=== PATIENT | male | born 1950 | race African-American/Black ===

== ENCOUNTER 2025-04-23 12:01 | Inpatient (IN) | payer OTHER ==
[~2025-04-23] VITALS: Ht 172.7 cm; Wt 66.7 kg
[2025-04-23 12:37] LABS: PLATELET COUNT (AUTO) 201 K/uL (150-450); RED BLOOD CELL COUNT(AUTO) 3.52 MIL/uL (4.5-6.0); RED CELL DISTRIBUTION WIDTH 14.1 % (11.5-15.0); WHITE BLOOD COUNT (AUTO) 9.8 K/uL (4.3-11.0)
[2025-04-23] MEDS ORDERED: ONDANSETRON HCL/PF 4 MG/2 ML VIAL ONE (12:37)
[2025-04-23] MEDS: ONDANSETRON HCL/PF 4 MG/2 ML VIAL IV ONE (12:42)
[2025-04-23] MEDS: IV NS 0.9% 500 ML BAG IV ONE (12:45)
[2025-04-23 12:52] LABS: CALCIUM, SERUM 9.3 mg/dL (8.5-10.1); CREATININE 2.0 mg/dL (0.6-1.3); SODIUM SERUM 143 mmol/L (136-145); UREA NITROGEN, BLOOD 24 mg/dL (7-18)
[2025-04-23] MEDS ORDERED: ACETAMINOPHEN ES 500 MG TABLET ONE (13:10)
[2025-04-23] MEDS: ACETAMINOPHEN ES 500 MG TABLET PO ONE (13:20)
[2025-04-23] MEDS ORDERED: IV NS 0.9% 250 ML IV ONE (13:31)
[2025-04-23] MEDS ORDERED: IOHEXOL-350 100 ML VIAL IV ONE (13:31)
[2025-04-23] MEDS ORDERED: KRILL OIL PO (14:23)
[2025-04-23] MEDS ORDERED: GABA300C PO (14:23)
[2025-04-23] MEDS ORDERED: TRAZ-182 PO (14:23)
[2025-04-23] MEDS ORDERED: CHOL200026 PO (14:23)
[2025-04-23] MEDS ORDERED: METF-441 PO (14:23)
[2025-04-23] MEDS ORDERED: FLUC200T PO (14:23)
[2025-04-23] MEDS ORDERED: TAMS-12 PO (14:23)
[2025-04-23] MEDS ORDERED: TIOT18CA3 IH (14:23)
[2025-04-23] MEDS ORDERED: OMEP20CA15 PO (14:23)
[2025-04-23] MEDS ORDERED: DIPH50CA38 PO (14:23)
[2025-04-23] MEDS ORDERED: EMPA10TA PO (14:23)
[2025-04-23] MEDS ORDERED: GABA600T PO (14:23)
[2025-04-23] MEDS ORDERED: ASPI-1169 PO (14:23)
[2025-04-23] MEDS ORDERED: CALC-1276 PO (14:23)
[2025-04-23] MEDS ORDERED: ABAC1TAB15 PO (14:23)
[2025-04-23] MEDS ORDERED: [UNRECOGNIZED DRUG - CODE] PO (14:23)
[2025-04-23] MEDS ORDERED: ATOR10TA PO (14:23)
[2025-04-23] MEDS ORDERED: Z GUARD REMEDY 4 OZ OINT TP PRN (16:00)
[2025-04-23] MEDS ORDERED: ONDANSETRON HCL/PF 4 MG/2 ML VIAL IVP PRN (16:00)
[2025-04-23] MEDS ORDERED: DEXTROSE 50%-WATER 50 ML DISP.SYRIN IV PRN (16:00)
[2025-04-23] MEDS ORDERED: MAG HYDROX/AL HYDROX/SIMETH 30 ML UDC PO PRN (16:00)
[2025-04-23] MEDS ORDERED: TRAZODONE 50 MG TABLET PO PRN (16:00)
[2025-04-23] MEDS ORDERED: ZOLPIDEM TARTRATE 5 MG TABLET PO PRN (16:00)
[2025-04-23] MEDS: BLOOD SUGAR DIAGNOSTIC 1 EACH STRIP VI SCH (18:00)
[2025-04-23] MEDS: CEFTRIAXONE 1 G in IV D5W 50 ML IV SCH (18:08)
[2025-04-23] MEDS: TAMSULOSIN 0.4 MG CAP.SR.24H PO SCH (18:17)
[2025-04-23] MEDS: ATORVASTATIN 10 MG TABLET PO SCH (18:17)
[2025-04-23 18:25] VITALS: BP 104/63; TEMP 98.1; O2SAT 97
[2025-04-23] MEDS: AZITHROMYCIN 500 MG in IV D5W 250 ML IV SCH (18:52)
[2025-04-23 20:00] VITALS: BP 103/64; TEMP 97.3; O2SAT 96
[2025-04-23 20:06] VITALS: O2SAT 97
[2025-04-23 20:20] VITALS: O2SAT 99
[2025-04-23] MEDS: IPRATROPIUM NEB FS 0.5 MG/2.5 ML AMPUL.NEB NEB SCH (20:24)
[2025-04-23] MEDS: GABAPENTIN 300 MG CAPSULE PO SCH (21:38)
[2025-04-23] MEDS: HEPARIN SODIUM, PORCINE 5000 UNITS/1 ML VIAL SQ SCH (21:39)
[2025-04-23] MEDS: *INSULIN REGULAR(HUMULIN R)HUM 100 UNIT/ML VIAL SQ PRN (21:43)
[2025-04-23] MEDS: IV 1/2NS 1000 ML 1,000 ML IV PRN (22:23)
[2025-04-24] VITALS (12 sets, daily range): BP systolic 101–125; BP diastolic 54–83; TEMP 97.5–99.7; O2SAT 94–100
[2025-04-24] MEDS: INSULIN REGULAR, HUMAN 100 UNIT/ML 3 ML VIAL SQ PRN (06:43)
[2025-04-24 07:21] LABS: PLATELET COUNT (AUTO) 175 K/uL (150-450); RED BLOOD CELL COUNT(AUTO) 3.46 MIL/uL (4.5-6.0); RED CELL DISTRIBUTION WIDTH 14.3 % (11.5-15.0); WHITE BLOOD COUNT (AUTO) 11.9 K/uL (4.3-11.0)
[2025-04-24 07:47] LABS: CALCIUM, SERUM 9.0 mg/dL (8.5-10.1); CREATININE 1.5 mg/dL (0.6-1.3); PHOSPHORUS 3.4 mg/dL (2.5-4.9); SODIUM SERUM 143.0 mmol/L (136-145); UREA NITROGEN, BLOOD 18.0 mg/dL (7-18)
[2025-04-24] MEDS: PANTOPRAZOLE 40 MG TABLET.DR PO SCH (07:58)
[2025-04-24] MEDS: ASPIRIN 81 MG TAB.CHEW PO SCH (08:59)
[2025-04-24] MEDS: AMLODIPINE BESYLATE 10 MG TABLET PO SCH (09:00)
[2025-04-24] MEDS: CHOLECALCIFEROL 1,000 UNIT TABLET (VIT D3) PO SCH (09:00)
[2025-04-24] MEDS: VALSARTAN 80 MG TABLET PO SCH (09:00)
[2025-04-24] MEDS: CALCIUM CARB 600MG /VIT D 1 EACH TABLET PO SCH (09:00)
[2025-04-24] MEDS: EMPAGLIFLOZIN 10 MG TABLET PO SCH (09:03)
[2025-04-24 10:43] LABS: IRON, SERUM 22.0 ug/dl (50-175)
[2025-04-24 10:57] LABS: LDL 42.0 mg/dL (0-99)
[2025-04-24] MEDS: GABAPENTIN 300 MG CAPSULE PO SCH (11:53)
[2025-04-24] MEDS: ACETAMINOPHEN 325 MG TABLET PO PRN (16:34)
[2025-04-25] VITALS (13 sets, daily range): BP systolic 99–135; BP diastolic 52–91; TEMP 97.9–99.3; O2SAT 94–100
[2025-04-25 06:34] LABS: PLATELET COUNT (AUTO) 188 K/uL (150-450); RED BLOOD CELL COUNT(AUTO) 3.52 MIL/uL (4.5-6.0); RED CELL DISTRIBUTION WIDTH 13.7 % (11.5-15.0); WHITE BLOOD COUNT (AUTO) 7.3 K/uL (4.3-11.0)
[2025-04-25 06:38] LABS: APPEARANCE,URINE CLEAR (CLEAR); BLOOD, URINE 1+ Ery/uL (NEGATIVE); EOSINOPHIL,URINE None Seen; LEUKOCYTE ESTERASE ,URINE NEGATIVE (NEGATIVE); NITRITE, URINE POSITIVE (NEGATIVE); UGLUCOSE 3+ mg/dL (NEGATIVE)
[2025-04-25 06:51] LABS: ADD URINE CULTURE YES; SQUAMOUS EPITHELIAL CELL,UR Rare /HPF (None Seen)
[2025-04-25 07:06] LABS: ASPARTATE AMINOTRANSFERASE 14.0 U/L (15-37); CALCIUM, SERUM 9.0 mg/dL (8.5-10.1); CREATININE 1.9 mg/dL (0.6-1.3); PHOSPHORUS 3.5 mg/dL (2.5-4.9); SODIUM SERUM 138.0 mmol/L (136-145); TOTAL PROTEIN, SERUM 7.1 g/dL (6.4-8.2); UREA NITROGEN, BLOOD 20.0 mg/dL (7-18)
[2025-04-25 07:09] LABS: CREATININE, URINE 65.0 MG/DL (30.0-125.0); URINE SODIUM, RANDOM 71.0 mmol/l (40-220); URINE TOTAL PROTEIN 40.7 mg/dL (0-11.9)
[2025-04-25 07:09] LABS: CREATINE KINASE, TOTAL 146.0 U/L (39-308)
[2025-04-25] MEDS: SOD FERRIC GLUC 125 MG in IV NS 0.9% 100 ML IV SCH (13:42)
[2025-04-26] VITALS (13 sets, daily range): BP systolic 108–120; BP diastolic 70–75; TEMP 97.7–98; O2SAT 94–100
[2025-04-26 05:08] LABS: PTH, INTACT 49 pg/mL (15-65)
[2025-04-26 06:19] LABS: PLATELET COUNT (AUTO) 185 K/uL (150-450); RED BLOOD CELL COUNT(AUTO) 3.25 MIL/uL (4.5-6.0); RED CELL DISTRIBUTION WIDTH 13.6 % (11.5-15.0); WHITE BLOOD COUNT (AUTO) 5.6 K/uL (4.3-11.0)
[2025-04-26 06:28] LABS: ASPARTATE AMINOTRANSFERASE 12.0 U/L (15-37); CALCIUM, SERUM 8.8 mg/dL (8.5-10.1); CREATININE 1.7 mg/dL (0.6-1.3); PHOSPHORUS 3.7 mg/dL (2.5-4.9); SODIUM SERUM 139.0 mmol/L (136-145); TOTAL PROTEIN, SERUM 6.5 g/dL (6.4-8.2); UREA NITROGEN, BLOOD 23.0 mg/dL (7-18)
[2025-04-26] MEDS: AZITHROMYCIN 250 MG TABLET PO SCH (18:15)
[2025-04-26] MEDS: TRIUMEQ PO SCH (18:16)
[2025-04-26] MEDS: MAGNESIUM HYDROXIDE 30 ML UDC PO PRN (22:02)
[2025-04-27] VITALS (9 sets, daily range): BP systolic 120–132; BP diastolic 70–96; TEMP 98.1–98.4; O2SAT 94–99
[2025-04-27] MEDS: FLUCONAZOLE (100 MG) 100 MG TABLET PO SCH (08:55)
[2025-04-27] MEDS ORDERED: AZIT500T4 PO (13:41)
[2025-04-27] MEDS ORDERED: AMOX-430 PO (13:41)
[2025-04-28 07:07] LABS: *BASOS 0 % (Not Estab.); *BASOS, ABSOLUTE 0.0 x10E3/uL (0.0-0.2); *EOS 4 % (Not Estab.); *EOS, ABSOLUTE 0.2 x10E3/uL (0.0-0.4); *HCT 31.4 % (37.5-51.0); *HGB 9.9 g/dL (13.0-17.7); *IMMATURE GRANULOCYTES 0 % (Not Estab.); *IMMATURE GRANULOCYTES(ABS) 0.0 x10E3/uL (0.0-0.1); *LYMPHOCYTES 26 % (Not Estab.); *LYMPHS, ABSOLUTE 1.3 x10E3/uL (0.7-3.1); *MCH 32.0 pg (26.6-33.0); *MCHC 31.5 g/dL (31.5-35.7); *MCV 102 fL (79-97); *MONOCYTES 10 % (Not Estab.); *MONOS, ABSOLUTE 0.5 x10E3/uL (0.1-0.9); *NEUTROPHILS 60 % (Not Estab.); *NEUTROPHILS, ABSOLUTE 3.0 x10E3/uL (1.4-7.0); *PLT 198 x10E3/uL (150-450); *RBC 3.09 x10E6/uL (4.14-5.80); *RDW 12.7 % (11.6-15.4); *WBC 4.9 x10E3/uL (3.4-10.8)
[2025-04-29 10:07] LABS: *% CD 4 POS. LYMPH 57.9 % (30.8-58.5); *% CD 8 POS. LYMPH 26.8 % (12.0-35.5); *ABSOLUTE CD 4 HELPER 753 /uL (359-1519); *ABSOLUTE CD 8 SUPPRESSOR 348 /uL (109-897); *CD4/CD8 RATIO 2.16 (0.92-3.72)
[2025-04-29 19:06] LABS: LEGIONELLA PNEUMOPHILIA AB Non Reactive (Non Reactive)
[2025-04-29 21:11] LABS: *MYCOPLASMA PNEUMONIAE IgG 311 U/mL (0-99); *MYCOPLASMA PNEUMONIAE IgM <770 U/mL (0-769)
== END 2025-04-27 18:04 | disposition home or self-care (01) | DRG 871 ==
LOC: ER 12:08 → EDSEX 12:08 → TELE1 17:25 → MEDSG1 04-24 09:45
PROVIDERS: ADMIT Student in an Organized Health Care Education/Training Program; ATTEND Student in an Organized Health Care Education/Training Program
DX: A41.9 Sepsis, unspecified organism (principal); J15.9 Unspecified bacterial pneumonia; J96.01 Acute respiratory failure with hypoxia; N17.0 Acute kidney failure with tubular necrosis; N39.0 Urinary tract infection, site not specified; Z20.822 Contact with and (suspected) exposure to COVID-19; E78.5 Hyperlipidemia, unspecified; M89.8X9 Other specified disorders of bone, unspecified site; Z87.891 Personal history of nicotine dependence; R53.1 Weakness; Z79.84 Long term (current) use of oral hypoglycemic drugs; E83.9 Disorder of mineral metabolism, unspecified; I49.8 Other specified cardiac arrhythmias; D50.9 Iron deficiency anemia, unspecified; I12.9 Hypertensive chronic kidney disease with stage 1 through stage 4 chronic kidney disease, or unspecified chronic kidney disease; E11.22 Type 2 diabetes mellitus with diabetic chronic kidney disease; N18.9 Chronic kidney disease, unspecified
CPT/HCPCS: 36415; 71045-TC; 76770-TC; 80048-TC; 80053-TC; 80061-TC; 81001; 82550-TC; 82570-TC; 82728-TC; 82962-TC; 83540-TC; 83735-TC; 83970; 84100-TC; 84155; 84165; 84300-TC; 84439-TC; 84443-TC; 84484-TC; 85025-TC; 86360; 86713; 86738; 87040-TC; 87086-TC; 87449; 93307-TC; 94760-TC; 94762-TC; 94799-TC; A4223; G0378; J0456; J0696; J1644; J1815; J2405; J2916; J3490; J7030; J7040; J7050; J7060; Q0163; Q9967